=== PATIENT | female | born 1945 | race Caucasian/White ===

== ENCOUNTER 2016-08-10 09:54 | Outpatient (CLI) | payer OTHER ==
[2016-08-10 11:01] LABS: eGFR (African) > 60; eGFR (Non-African) > 60
== END 2016-08-10 09:55 ==
LOC: LAB 09:54
PROVIDERS: ATTEND Family Medicine
DX: E78.2 Mixed hyperlipidemia (principal)
CPT/HCPCS: 36415; 80053; 80061

== ENCOUNTER 2016-10-22 07:27 | Day surgery (SDC) | payer OTHER ==
--- NOTE | 2016-10-24 11:32 | GI Report ---
REFERRING PHYSICIAN: Natalya Akins MD [employer] SHRINKING MACHINE OPERATOR HELPER: Derick Lucio MD PROCEDURE MEDICATION: Propofol as per anesthesia. 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 She denies any changes in her stool or blood in the stool. She is here for a 5-year follow up. PROCEDURE PERFORMED: Colonoscopy and polypectomy. PROCEDURE: An Olympus video colonoscope was advanced into the rectum. She had an atonic redundant colon and it took some maneuvering to reach the cecum. The appendiceal orifice and terminal ileum were normal. On slow withdrawal, the cecum, ascending colon, and transverse colon had redundancy but no obvious intraluminal lesions noted. In the descending colon, particular in the sigmoid , there was moderate diverticular disease. No diverticulitis. In the rectum at about 5 cm from the anal canal, patient had almost a 1 cm size flat sessile polyp removed with electrocautery. No obvious residual left. It was submitted to pathology. Patient tolerated the procedure well. FINDINGS: A large, almost 1 cm, flat, villous-appearing polyp in the rectum removed with electrocautery. Apparently, the rectum was the site of her previous tubulovillous polyp. RECOMMENDATIONS: 1. Again, pending the pathology of the polyp, she needs her colon re-looked at again between 3 and not longer than 5 years. 2. A high-fiber diet is recommended. 3. Follow up with Dr. Akins. cc: Dr. Natalya GALVAN
== END 2016-10-22 07:30 ==
LOC: OPSURG 07:27
PROVIDERS: ATTEND Internal Medicine Gastroenterology
DX: K62.1 Rectal polyp (principal); K57.30 Diverticulosis of large intestine without perforation or abscess without bleeding
CPT/HCPCS: 88305; J2704; J7120; 45385; S1016

== ENCOUNTER 2017-07-24 08:39 | Outpatient (CLI) | payer OTHER ==
[2017-07-24 09:13] LABS: eGFR (Non-African) > 60
== END 2017-07-24 08:40 ==
LOC: RAD 08:39
PROVIDERS: ATTEND Family Medicine
DX: I10 Essential (primary) hypertension (principal); Z78.0 Asymptomatic menopausal state
CPT/HCPCS: 36415; 77080; 80053; 80061